=== PATIENT | female | born 1995 | race American Indian/Alaskan Native ===

== ENCOUNTER 2019-01-21 10:24 | Emergency (ER) | payer OTHER ==
[2019-01-21] MEDS ORDERED: REGLAN IV ONE (10:58)
[2019-01-21] MEDS ORDERED: DECADRON IV ONE (10:58)
[2019-01-21] MEDS ORDERED: BENADRYL IV ONE (10:58)
[2019-01-21] MEDS ORDERED: TORADOL IV ONE (10:58)
[2019-01-21] MEDS ORDERED: LACTATED RINGERS 1,000 ML IV ONE (10:58)
--- NOTE | 2019-01-21 11:02 | Emergency Department Report ---
ED Chest Pain HPI - General Chief Complaint: Chest Pain Stated Complaint: CHEST/BACK PAIN Time Seen by Provider: 01/21/19 10:57 Source: patient Mode of arrival: Ambulatory Limitations: No Limitations - History of Present Illness Initial Comments: Chest pain x 4 days, also in back, worse with breathing minimal SOB noted no cough, no fever also reports migraine x 3 days, hx of same, typical pattern, no new features MD Complaint: chest pain -: Gradual, days(s) (5) Pain Location: substernal, right chest Pain Radiation: back Severity: moderate Severity scale (0 -10): 7 Quality: sharp Consistency: constant Improves With: nothing Worsens With: inspiration re: denies: nausea, vomting Other Symptoms: denies: cough, fever Treatments Prior to Arrival: none - Related Data On Oral Contraceptives: No Previous Rx's Medication Instructions Recorded Last Taken Type Butalbit/Acetamin/Caff/Codeine 1 each PO Q12HR #30 capsule 01/23/15 Unknown Rx [Fioricet-Cod 67-856-03-30 Cap] Ondansetron [Zofran] 4 mg PO Q8HR PRN #20 tablet 01/23/15 Unknown Rx Butalb/Acetamin/Caff 50-325-40 1 each PO Q6H PRN #12 tablet 01/21/19 Unknown Rx [Fioricet] Naproxen [Naprosyn] 500 mg PO BID PRN #20 tablet 01/21/19 Unknown Rx Allergies Allergy/AdvReac Type Severity Reaction Status Date / Time No Known Allergies Allergy Unverified 10/27/13 10:35 Heart Score - HEART Score History: Slightly suspicious EKG: Normal Age: < 45 Risk factors: No known risk factors Troponin: < normal limit HEART Score: 0 ED Review of Systems ROS: Stated complaint: CHEST/BACK PAIN Other details as noted in HPI Comment: All other systems reviewed and negative Cardiovascular: as per HPI Neurological: as per HPI, headache ED Past Medical Hx - Past Medical History Previous Medical History?: Yes Additional medical history: FREQUENT EAR INFECTIONS, URINARY FREQUENCY, - Surgical History Past Surgical History?: Yes Additional Surgical History: TUBES IN EARS. - Social History Smoking Status: Never Smoker Substance Use Type: None - Medications Home Medications: Home Medications Medication Instructions Recorded Confirmed Last Taken Type Butalbit/Acetamin/Caff/Codeine 1 each PO Q12HR #30 capsule 01/23/15 Unknown Rx [Fioricet-Cod 85-501-30-30 Cap] Ondansetron [Zofran] 4 mg PO Q8HR PRN #20 tablet 01/23/15 Unknown Rx Butalb/Acetamin/Caff 50-325-40 1 each PO Q6H PRN #12 tablet 01/21/19 Unknown Rx [Fioricet] Naproxen [Naprosyn] 500 mg PO BID PRN #20 tablet 01/21/19 Unknown Rx ED Physical Exam - General Limitations: No Limitations General appearance: alert, in no apparent distress - Head Head exam: Present: atraumatic, normocephalic - Eye Eye exam: Present: normal appearance - ENT ENT exam: Present: mucous membranes moist - Neck Neck exam: Present: normal inspection - Respiratory Respiratory exam: Present: normal lung sounds bilaterally. Absent: respiratory distress, wheezes - Cardiovascular Cardiovascular Exam: Present: regular rate, normal rhythm. Absent: systolic murmur, diastolic murmur, rubs, gallop - GI/Abdominal GI/Abdominal exam: Present: soft, normal bowel sounds. Absent: distended, tenderness, guarding, rebound - Extremities Exam Extremities exam: Present: normal inspection - Back Exam Back exam: Present: normal inspection - Neurological Exam Neurological exam: Present: alert, oriented X3, CN II-XII intact, normal gait, reflexes normal. Absent: motor sensory deficit - Psychiatric Psychiatric exam: Present: normal affect, normal mood - Skin Skin exam: Present: warm, dry, intact, normal color. Absent: rash ED Course Vital Signs 01/21/19 10:38 Temperature 98.1 F Pulse Rate 92 H Respiratory 16 Rate Blood Pressure 167/126 [Left] O2 Sat by Pulse 100 Oximetry - Reevaluation(s) Reevaluation #1: 01/21/19 16:18 Pt feels better with PEREZ and CP ED Medical Decision Making - Lab Data Result diagrams: 01/21/19 11:14 01/21/19 11:14 - Radiology Data Radiology results: report reviewed CXR = mild cardiomegaly CT Chest w/o = cardiomegaly, CAD VQ= normal - Medical Decision Making pleuritic pain x 5 days migraine x 3 days exam is normal plan= labs, meds given IVF, toradol, decadron, reglan, benadryl CT noted with CAD findings, highly concerning in this 23 y/o F I had a lengthy discussion regarding this finding and need for aggressive risk factor modification and PCP/cardiology follow up I do not feel this is the cause of her pain today and there are no exertional symptoms. Final impression: Migraine Pleurisy CAD - Differential Diagnosis migraine, PE, pleurisy Critical care attestation.: If time is entered above; I have spent that time in minutes in the direct care of this critically ill patient, excluding procedure time. ED Disposition Clinical Impression: Pleurisy, Abnormal CT of the chest Migraine Qualifiers: Migraine type: unspecified Status migrainosus presence: without status migrainosus Intractability: not intractable Qualified Code(s): G43.909 - Migraine, unspecified, not intractable, without status migrainosus Disposition: - TO HOME OR SELFCARE Is pt being admited?: No Condition: Stable Instructions: Coronary Artery Disease (ED), Pleurisy (ED), Migraine Headache (ED) Prescriptions: Butalb/Acetamin/Caff 50-325-40 [Fioricet] 1 each PO Q6H PRN #12 tablet PRN Reason: Headache Naproxen [Naprosyn] 500 mg PO BID PRN #20 tablet PRN Reason: pain Referrals: CHRISTINA SIMPSON MD [Primary Care Provider] - 3-5 Days MAURA DUNCAN MD [Staff Physician] - 3-5 Days Time of Disposition: 16:22
[2019-01-21 11:25] LABS: Basophils # (Auto) 0.1 K/mm3 (0.0-0.1); Basophils % (Auto) 1.4 % (0.0-1.8); Eosinophils # (Auto) 0.1 K/mm3 (0.0-0.4); Eosinophils % (Auto) 1.9 % (0.0-4.3); Hematocrit 37.8 % (30.3-42.9); Hemoglobin 12.6 gm/dl (10.1-14.3); Lymphocytes # (Auto) 2.1 K/mm3 (1.2-5.4); Lymphocytes % (Auto) 36.5 % (13.4-35.0); Mean Corpuscular HGB Conc 33 % (30-34); Mean Corpuscular Volume 85 fl (79-97); Monocytes # (Auto) 0.5 K/mm3 (0.0-0.8); Platelet Count 253 K/mm3 (140-440); Red Blood Count 4.44 M/mm3 (3.65-5.03); Red Cell Distribution Width 13.9 % (13.2-15.2)
[2019-01-21 11:46] LABS: BUN/Creatinine Ratio 14; Blood Urea Nitrogen 11 mg/dL (7-17); Calcium 9.2 mg/dL (8.4-10.2); Hemolysis Index 5
--- NOTE | 2019-01-21 14:17 | Cat Scan Report ---
PROCEDURE: CT CHEST WO CON TECHNIQUE: Computerized axial tomography of the chest was performed without contrast material. This study is performed without intravenous contrast and the sensitivity for pathology, including neoplasm s, adenopathy, abscess, pulmonary embolism and aortic dissection, is reduced. Coronal and sagittal re constructed imaging provided. HISTORY: pleuritic pain, elevated d-dimer, r/o PE COMPARISONS: None currently available. FINDINGS: No pneumothorax. No effusion. No consolidation. No endobronchial lesion. Main pulmonary artery is unremarkable. No aneurysm. Major branch arteries are within normal limits. [id number] atherosclerotic disease . [id number] cardiomegaly. No pericardial effusion. Coronary artery disease. There is no axillary adenopathy. There is no hilar or mediastinal mass or adenopathy. Limited images of the thyroid gland are unremarkable. Limited images of the esophagus are unremarkable. Bones: No suspicious osseous lesions on this limited examination of the skeleton. Metastatic disease better evaluated with bone scan. Degenerative changes are present in the spine. IMPRESSION: * Without IV contrast pulmonary embolus cannot excluded. * Cardiomegaly. This document is electronically signed by Matheus Crain MD., Jan 21 2019 02:15:18 PM ET
--- NOTE | 2019-01-21 14:48 | XRay Report ---
PROCEDURE: XR CHEST ROUTINE 2V TECHNIQUE: Mediolateral views of the chest were obtained. HISTORY: chest pain COMPARISONS: None FINDINGS: Heart size upper normal. Pulmonary vasculature appears normal. Lungs are clear. No infiltrates masses effusions or pneumothorax visualized. No acute bone abnormalities are identified. IMPRESSION: Heart size upper normal and otherwise negative exam. This document is electronically signed by Diaz Her MD., Jan 21 2019 02:46:33 PM ET
--- NOTE | 2019-01-21 16:11 | Nuclear Medicine Report ---
PROCEDURE: NM LUNG SCAN PERF/VENT TECHNIQUE: 6.0 mCi Tc-99m MAA was injected IV for pulmonary perfusion imaging in multiple projection s. 12.3 mCi Xenon-[id number] was inhaled for pulmonary ventilation imaging in multiple projections. HISTORY: CP COMPARISONS: Chest x-ray January 21, 2019. FINDINGS: Ventilation: Uniform. Perfusion: No perfusion deficits. IMPRESSION: * Based on the PIOPED study, findings represent normal study for PE. This document is electronically signed by Matheus Crain MD., Jan 21 2019 04:08:55 PM ET
[2019-01-21 17:02] VITALS: BP 151/109
== END 2019-01-21 17:08 | disposition home or self-care (01) ==
LOC: ED 10:24
DX: R09.1 Pleurisy (principal); G43.909 Migraine, unspecified, not intractable, without status migrainosus
CPT/HCPCS: 36415; 71046; 71250; 78582; 80048; 84484; 84703; 85025; 85379; 93005; 93010; 96374; 96375; 99284; A9540; A9558; J1100; J1200; J1885; J2765; J7120